=== PATIENT | female | born 1985 | race African-American/Black ===

== ENCOUNTER 2018-11-17 13:17 | Outpatient (CLI) | payer OTHER ==
[2018-11-17] MEDS ORDERED: GADOBUTROL 10 MMOL/10 ML VIAL ONE (14:23)
[2018-11-17] MEDS ORDERED: GADOBUTROL 10 MMOL/10 ML VIAL IVP ONE (15:59)
--- NOTE | 2018-11-18 11:27 | MRI Report ---
Reason: INTRA-ABDOMINAL PELVIC SWELLING, MASS LUMP Procedure Date: 11/17/2018 Accession Number: [id number] / [id number] Procedure: MRI - Abdomen W/WO CPT Code: FULL RESULT: EXAM: MR ABDOMEN WITH AND WITHOUT CONTRAST MR PELVIS WITH AND WITHOUT CONTRAST EXAM DATE: 11/17/2018 03:57 PM. CLINICAL HISTORY: Intra-abdominal pelvic swelling, mass, lump. COMPARISON: ABDOMEN W/WO 11/17/2018 1:58 PM. TECHNIQUE: Multiplanar breath-hold T1, T2, and DWI sequences obtained through the abdomen and pelvis on an MR scanner. Images obtained before and after administration of 8 mL Gadavist intravenous contrast. Early phase postcontrast sequences are severely degraded by motion. FINDINGS: Abdomen: Lung Bases: Unremarkable. Liver: The liver has normal size, morphology and signal. No evidence of mass or biliary dilatation with the exception of a simple cyst measuring up to 0.9 cm in the right hepatic lobe. Gallbladder: The gallbladder is partially distended and appears normal with no wall thickening or stone. Pancreas: The pancreas appears normal with no mass or ductal dilatation. Spleen: The spleen appears normal. Kidneys and Adrenals: There is mild right hydroureteronephrosis. Left kidney is normal. There are no cysts in the kidneys. The adrenals appear normal. Bowel: The small bowel and colon appear normal with no inflammation or obstruction. The appendix is not definitely visualized. Retroperitoneum: The retroperitoneal structures appear normal with no mass or lymphadenopathy. Pelvis: There is a trace amount of free fluid. Bladder: The urinary bladder appears normal. Reproductive Organs: The uterus is enlarged and contains an 11.6 x 14.3 x 10 cm heterogeneously enhancing solid mass arising anteriorly and superiorly as well as a second 5.6 x 6.0 x 5.7 cm solid heterogeneously enhancing exophytic mass arising posteriorly. IMPRESSION: Uterine masses likely account for the physical examination abnormality, as described. RADIA
== END 2018-11-17 13:18 | disposition home or self-care (01) ==
LOC: DI 13:17
PROVIDERS: ATTEND Student in an Organized Health Care Education/Training Program
DX: N85.9 Noninflammatory disorder of uterus, unspecified (principal)
CPT/HCPCS: 72197; 74183; A9585

== ENCOUNTER 2019-02-01 11:44 | Outpatient (CLI) | payer OTHER ==
[2019-02-01 12:03] LABS: BASOPHILS % (AUTO) 0.7 %; EOSINOPHILS # (AUTO) 0.2 10^3/uL (0.0-0.7); EOSINOPHILS % (AUTO) 3.4 %; LYMPHOCYTES # (AUTO) 1.4 10^3/uL (1.5-3.5); LYMPHOCYTES % (AUTO) 32.7 %; MEAN CORPUSCULAR HEMOGLOBIN 26.1 pg (27.0-31.0); MEAN CORPUSCULAR HGB CONC 31.2 g/dL (32.0-36.0); MEAN CORPUSCULAR VOLUME 83.6 fL (81.0-99.0); MEAN PLATELET VOLUME 10.4 fL (7.9-10.8); MONOCYTES # (AUTO) 0.4 10^3/uL (0.0-1.0); MONOCYTES % (AUTO) 9.3 %; NEUTROPHILS # (AUTO) 2.4 10^3/uL (1.5-6.6); NEUTROPHILS % (AUTO) 53.7 %; PLT - PLATELET COUNT 344 10^3/uL (130-450); RED BLOOD COUNT 4.22 10^6/uL (4.20-5.40); RED CELL DISTRIBUTION WIDTH 15.9 % (12.0-15.0); WHITE BLOOD COUNT 4.4 x10^3/uL (4.8-10.8)
[2019-02-01 12:11] LABS: HCG UR QUAL NEGATIVE
== END 2019-02-01 11:45 | disposition home or self-care (01) ==
LOC: LAB 11:44
PROVIDERS: ATTEND Obstetrics & Gynecology
DX: D25.9 Leiomyoma of uterus, unspecified (principal); Z01.818 Encounter for other preprocedural examination
CPT/HCPCS: 81025; 85025; 86850; 86900; 86901

== ENCOUNTER 2019-02-02 06:12 | Inpatient (IN) | payer OTHER ==
[2019-02-02] MEDS ORDERED: CEFAZOLIN SODIUM IN 0.9 % NACL 2 GM/100 ML BAG IV ONE (06:31)
[2019-02-02] MEDS ORDERED: ACETAMINOPHEN 1,000 MG/100 ML 100 ML IV ONE (06:31)
[2019-02-02] MEDS ORDERED: LACTATED RINGERS 1,000 ML IV ONE ×2 (06:55→09:09)
--- NOTE | 2019-02-02 07:12 | ANESTHESIA ---
Pre-Anesthesia VS, & Labs - Diagnosis uterine fibroids - Procedure Abdominal myomectomy Vital Signs: Temp Pulse Resp BP Pulse Ox 37.3 C 83 16 132/86 H 100 02/02/19 06:41 02/02/19 06:41 02/02/19 06:41 02/02/19 06:41 02/02/19 06:41 Height 5 ft 5.5 in Weight (kg) 84.37 kg - NPO >8 hours - Is Patient ?: No - Lab Results Lab results reviewed: Yes Home Medications and Allergies Home Medications: Ambulatory Orders Naproxen Sodium [Aleve] 220 mg PO 01/15/19 Acetaminophen [Tylenol] 2 PRN 02/02/19 Ferrous Sulfate 1 02/02/19 Naproxen Sodium [Aleve] 220 mg PO 01/15/19 Acetaminophen [Tylenol] 2 PRN 02/02/19 Ferrous Sulfate 1 02/02/19 Allergies/Adverse Reactions: Allergies Allergy/AdvReac Type Severity Reaction Status Date / Time No Known Drug Allergies Allergy Verified 01/15/19 10:00 Anes History & Medical History - Anesthetic History Anesthesia Complications: reports: No previous complications Family history of Anesthesia Complications: Denies Family history of Malignant Hyperthermia: Denies - Medical History Cardiovascular: reports: None Pulmonary: reports: None Gastrointestinal: reports: None Urinary: reports: Other Musculoskeletal: reports: None Endocrine/Autoimmune: reports: None Skin: reports: None - Surgical History General: Other Exam General: Alert, Oriented x3, Cooperative Dental: WNL Mouth Openin Fingerbreadth Neck Mobility: Normal Mallampati classification: II Thyromental Distance: 4-6 cm Respiratory: Lungs clear, Normal breath sounds, No respiratory distress Cardiovascular: Regular rate Mental/Cognitive Status: Alert/Oriented X3, Normal for patient Cognitive Status: Within normal limits Plan Anesthesia Type: General, Transverse Abdominis Plane (TAP) Block Regional Block: Per Surgeon's request for Post Op pain control Consent for Procedure(s) Verified and Reviewed: Yes Code Status: Attempt Resuscitation ASA classification: 2-Mild systemic disease Is this case an emergency?: No
[2019-02-02] MEDS ORDERED: BUPIVACAINE 0.5% PF 30 ML VIAL ONE (07:23)
[2019-02-02] MEDS ORDERED: VASOPRESSIN 20 UNIT/ML VIAL ONE (07:24)
[2019-02-02] MEDS ORDERED: ROPIVACAINE 0.5% PF 20 ML VIAL ONE (07:41)
[2019-02-02] MEDS ORDERED: BUPIVACAINE 0.5% PF 30 ML VIAL INFIL ONE (09:49)
[2019-02-02] MEDS ORDERED: HYDROmorphone 0.5 MG/0.5 ML SYRINGE IVP PRN (10:06)
[2019-02-02] MEDS ORDERED: ONDANSETRON 4 MG/2 ML VIAL IVP PRN (10:06)
--- NOTE | 2019-02-02 11:20 | OPERATIVE REPORT ---
Operative Report - General Admit Date: 02/02/19 Procedure Date: 02/02/19 Planned Procedure: abdominal myomectomy Pre-Op Diagnosis: uterine fibroids Procedure Performed: abdominal myomectomy Post Op Diagnosis: same as above - Procedure Note Primary Surgeon: Yazmin Garsia Secondary Surgeon: Michi Keith Anesthesia Technique: General ET tube Pathology: 1. uterine fibroids (2) IV Fluids (mL): 1,300 Estimated Blood Loss (mL): 275 Urine Output (mL): 30 Indications: uterine fibroids Findings: Uterus enlarged by fundal fibroid approximately 12 cm in diameter extending up into abdomen and deviating uterus to the right. Smaller (approximately 6 cm) posterior fibroid extending off posterior uterine wall. Both fibroids dissected; entry into the uterine cavity noted during removal of fundal fibroid. Normal appearing bilateral fallopian tubes and ovaries. Complications: None - Other Other Information/Narrative: Procedure: The patient was taken to the operating room after informed consent was assured. General anesthesia was induced. The patient was then placed in low lithotomy and prepped and draped in a sterile fashion. An exam under anesthesia revealed a bulky uterus filling pelvis and abdomen to the level of the umbilicus. A midline vertical incision was made from just above the pubic symphysis to just below the umbilicus and carried down to the level of the fascia. The fascia was incised in the midline and . The incision was then extended in a curvilinear fashion to the left of the umbilicus. The peritoneum was identified in the midline and entered sharply. The cavity was swept digitally and no significant adhesions were noted. The peritoneal incision was extended. Visual inspection revealed grossly normal bowel, bilateral fallopian tubes and ovaries. The uterus was noted to be bulky with multiple large fibroids both anteriorly and posteriorly. The uterus was exteriorized to improve visualization. A solution of 20u of vasopressin in 29 ml of normal saline was injected into the myometrium overlying the largest fibroid at the uterine fundus, and directly into the fibroid. A transverse incision was created with cautery over the fibroid and carried down through the capsule. Judicious use of blunt and sharp dissection was used to shell the fibroid out in an avascular plane. The fibroid was noted to be abutting the top of the endometrial cavity which was entered during dissection. Interrupted sutures of 2-0 vicryl were placed to reapproximate the top of the endometrial cavity. A purse string suture of 2-0 vicryl was then placed to reapproximate the deep myometrium. A second incision was made over the posterior fibroid. This was dissected out using blunt and sharp dissection. The posterior myometrium deep space was closed with a purse string suture of 2-0 vicyrl. A second series of figure eights was placed in the superficial myometrium. Excess serosa was trimmed. The serosa was then reapproximated with a baseball stitch of 4-0 monocryl. Good hemostasis was achieved. Attention was then turned to the first incision. The myometrium was further reapproximated with several layers of figure of eights of 2-0 vicryl. The serosa was approximated with a baseball stitch of 4-0 monocryl. Hemostasis was achieved. Sepra film was placed over the posterior incision and the uterus was replaced in the pelvis. An additional sheet of sepra film was then placed over the anterior incision. The fascia was closed with a running suture of 0 PDS, incorporating both the anterior and posterior rectus sheath above the arcuate line. The subcutaneous space was closed with interrupted sutures of 2-0 vicryl. A deep dermal running suture of 4-0 monocryl was placed to reduce tension on the incision. The skin was reapproximated with a running subcuticular suture of 3-0 monocryl. The length of the incision was infiltrated with 20 mL of 0.5% marcaine plain. Steristrips were placed over the incision, followed by pressure dressing. A speculum was inserted in the vagina and the cervix was visualized. A ring forcep was used to grasp the anterior lip of the cervix. A 14 [place] ramirez catheter was fed through the cervix and advanced to the fundus, but on two attempts to inflate the balloon, was pushed back out of the cavity. The attempt to place intrauterine balloon for adhesion prevention was abandoned. All sponge and instrument counts were correct. A transverse abdominis plane block was performed by anesthesia. The patient was awoken and extubated. She was taken to the PACU in stable condition.
[2019-02-02] MEDS ORDERED: KETOROLAC 15 MG/ML VIAL ONE (11:24)
[2019-02-02] MEDS: KETOROLAC 30 MG/ML VIAL IVP SCH ×3 (11:35→22:34)
[2019-02-02] MEDS: ACETAMINOPHEN 500 MG TABLET PO SCH ×3 (11:55→22:34)
[2019-02-02] MEDS: LACTATED RINGERS 1,000 ML IV SCH ×2 (12:10→21:32)
[2019-02-02] MEDS: oxyCODONE 5 MG TABLET PO PRN ×2 (12:11→21:32)
[2019-02-02 16:07] LABS: CREATININE 0.9 mg/dL (0.4-1.0)
[2019-02-02] MEDS: DOCUSATE SODIUM 100 MG CAPSULE PO SCH (21:31)
[2019-02-03] MEDS: oxyCODONE 5 MG TABLET PO PRN ×2 (03:17→15:57)
[2019-02-03] MEDS: KETOROLAC 30 MG/ML VIAL IVP SCH (05:18)
[2019-02-03] MEDS: ACETAMINOPHEN 500 MG TABLET PO SCH ×2 (05:27→11:24)
[2019-02-03 06:17] LABS: BASOPHILS % (AUTO) 0.2 %; EOSINOPHILS # (AUTO) 0.1 10^3/uL (0.0-0.7); EOSINOPHILS % (AUTO) 0.6 %; HGB - HEMOGLOBIN 8.2 g/dL (12.0-16.0); LYMPHOCYTES # (AUTO) 1.6 10^3/uL (1.5-3.5); LYMPHOCYTES % (AUTO) 19.1 %; MEAN CORPUSCULAR HEMOGLOBIN 25.1 pg (27.0-31.0); MEAN CORPUSCULAR HGB CONC 30.4 g/dL (32.0-36.0); MEAN CORPUSCULAR VOLUME 82.6 fL (81.0-99.0); MEAN PLATELET VOLUME 10.5 fL (7.9-10.8); MONOCYTES # (AUTO) 0.8 10^3/uL (0.0-1.0); MONOCYTES % (AUTO) 9.4 %; NEUTROPHILS # (AUTO) 5.9 10^3/uL (1.5-6.6); NEUTROPHILS % (AUTO) 70.2 %; PLT - PLATELET COUNT 274 10^3/uL (130-450); RED BLOOD COUNT 3.27 10^6/uL (4.20-5.40); WHITE BLOOD COUNT 8.4 x10^3/uL (4.8-10.8)
--- NOTE | 2019-02-03 07:03 | PROVIDER PROGRESS NOTE ---
Subjective - Prog Note Date Prog Note Date: 02/03/19 Prog Note Time: 07:00 - Subjective Pt reports feeling: Improved (Doing well with no concerns overnight. Pain well controlled with oral medications, required roxicodone x 1 last night, continues on tylenol and toradol. Denies n/v; tolerated small amount of supper last night. Voiding to ramirez. No flatus yet. Ambulated to chair last night, no lightheadedness. No other acute concerns.) Objective - Vital Signs/Intake & Output Vital Signs: Vital Signs x48h Temp Pulse Resp BP Pulse Ox 02/03/19 03:25 37.0 C 88 16 126/59 L 100 02/02/19 23:56 37.5 C 84 16 114/56 L 97 Intake & Output: Intake & Output 01/31/19 02/01/19 02/02/19 02/03/19 23:59 23:59 23:59 23:59 Intake Total 2636.667 1000 Output Total 3505 2500 Balance -868.333 -1500 - Objective General Appearance: positive: No acute distress Abdomen: positive: Tenderness (Appropriate demi-incisional tenderness, soft, no guarding, no rebound. Dressing in place over incision.) Neurologic/Psychiatric: positive: Oriented x3 - Lab Results Fish Bones: 02/03/19 06:02 02/02/19 15:52 Other Labs: Lab Results x24hrs 02/03/19 02/02/19 Range/Units 06:02 15:52 WBC 8.4 (4.8-10.8) x10^3/uL RBC 3.27 L (4.20-5.40) 10^6/uL Hgb 8.2 L (12.0-16.0) g/dL Hct 27.0 L (37.0-47.0) % MCV 82.6 (81.0-99.0) fL MCH 25.1 L (27.0-31.0) pg MCHC 30.4 L (32.0-36.0) g/dL RDW 16.0 H (12.0-15.0) % Plt Count 274 (130-450) 10^3/uL MPV 10.5 (7.9-10.8) fL Neut # (Auto) 5.9 (1.5-6.6) 10^3/uL Lymph # (Auto) 1.6 (1.5-3.5) 10^3/uL [place]gett # (Auto) 0.8 (0.0-1.0) 10^3/uL Eos # (Auto) 0.1 (0.0-0.7) 10^3/uL Baso # (Auto) 0.0 (0.0-0.1) 10^3/uL Absolute Nucleated RBC 0.00 x10^3/uL Nucleated RBC % 0.0 /100WBC Creatinine 0.9 (0.4-1.0) mg/dL Estimated GFR (MDRD) 87 L (>89) Assessment/Plan - Problem List (1) Postop check Impression: 33 yo woman POD#1 s/p abdominal myomectomy. VS wnl, exam benign. UOP excellent overnight. Hct 27 this AM; no signs/symptoms of anemia. Plan -Discontinue ramirez catheter -transition toradol to motrin -start iron/vitamin C -increase ambulation -Dispo: home tonight if voiding, passing flatus and pain under good control; o/w home tomorrow.
[2019-02-03] MEDS ORDERED: IBUPROFEN 800 MG TABLET PO SCH (08:00)
[2019-02-03] MEDS: DOCUSATE SODIUM 100 MG CAPSULE PO SCH (08:18)
[2019-02-03] MEDS: LACTATED RINGERS 1,000 ML IV SCH (10:07)
[2019-02-03] MEDS ORDERED: fentaNYL 100 MCG/2 ML VIAL IVP ONE (13:03)
[2019-02-03] MEDS ORDERED: PROPOFOL 200 MG/20 ML VIAL IVP ONE (13:03)
[2019-02-03] MEDS ORDERED: MIDAZOLAM 2 MG/2 ML VIAL IVP ONE (13:03)
--- NOTE | 2019-02-03 15:29 | DISCHARGE SUMMARY ---
Discharge Summary Admit Date: 02/02/19 Discharge Date: 02/03/19 Discharging Provider: Yazmin Garsia Code Status: Attempt Resuscitation Condition at Discharge: Good Discharge Disposition: 01 Home, Self Care Discharge Facility Name: [facility] - DIAGNOSES Admission Diagnoses: uterine fibroids Discharge Diagnoses with Status of Each Condition: 1. uterine fibroids, removed 2. anemia, secondary to acute operative blood loss - HPI History of Present Illness: 33 yo woman with uterine fibroids admitted for planned abdominal myomectomy. - CONSULTS | PROCEDURES Consultations: Anesthesia Procedures: abdominal myomectomy - HOSPITAL COURSE Hospital Course: Admitted for planned surgery, underwent uncomplicated abdominal myomectomy. On POD#1 her ramirez catheter was removed and pt was able to void spontaneously. At the time of discharge, she was ambulating well, tolerating regular diet, passing flatus and pain was well controlled with oral medications. She was discharged home with close interval f/u. - ALLERGIES Allergies/Adverse Reactions: Allergies Allergy/AdvReac Type Severity Reaction Status Date / Time No Known Drug Allergies Allergy Verified 01/15/19 10:00 - MEDICATIONS Home Medications: Ambulatory Orders Medication Instructions Recorded Confirmed Naproxen Sodium [Aleve] 220 mg PO 01/15/19 Acetaminophen [Tylenol] 2 PRN 02/02/19 Ferrous Sulfate 1 02/02/19 - PHYSICAL EXAM AT DISCHARGE General Appearance: positive: No acute distress (see AM progress note for full exam from day of discharge) Abdomen: positive: Tenderness (soft, no guarding or rebound, dressing in place) Neurologic/Psychiatric: positive: Oriented x3 - LABS Result Diagrams: 02/03/19 06:02 02/02/19 15:52 - QUALITY (Female Hip Fx Only) Was patient sent home on osteoporosis medication?: No - FOLLOW UP Follow Up: Follow up as scheduled at [facility]. Call Dr. Garsia at [phone] with any concerns. Do not drive for at least 2 weeks after your surgery. You should never drive if you are using prescription pain medicine and you should not drive until you feel you could react quickly in traffic. After surgery expect to have both good days and bad days as you recover. The first few days after surgery most women are sore so plan to stay at home and have someone nearby to help out. As you begin to recover gradually increase your activity. For the first 4 weeks after surgery please do not: "work out", do house work, or lift objects heavier than 10 lbs (approximately a gallon of milk). Please do not have intercourse or place anything in the vagina for 6 weeks after surgery. You may shower but do not take baths or swim. Use a stool softener for 2-4 weeks so that you do not need to strain for bowel movements. [id number] may be added for constipation. When to call the clinic ([phone]), or come to the Emergency Department: Bleeding heavier than a period, wound redness or drainage, vomiting, severe pain, fever to 100.4 or higher, inability or difficulty emptying your bladder or any other unusual symptoms.
[2019-02-03 16:13] VITALS: BP 147/85
== END 2019-02-03 16:20 | disposition home or self-care (01) | DRG 742 ==
LOC: MS2 06:12
PROVIDERS: ADMIT Obstetrics & Gynecology; ATTEND Obstetrics & Gynecology
PROC: 0UB90ZZ Excision of Uterus, Open Approach (ICD-10-PCS; principal; 2019-02-02 07:30)
DX: D25.1 Intramural leiomyoma of uterus (principal); D62 Acute posthemorrhagic anemia; R39.15 Urgency of urination; Z87.891 Personal history of nicotine dependence
CPT/HCPCS: 36415; 82565; 85025